=== PATIENT | female | born 1990 ===

== ENCOUNTER 2017-07-09 13:03 | Emergency (ER) | payer OTHER ==
[2017-07-09 13:09] VITALS: BP 156/103; PULSE 108; TEMP 98; O2SAT 98
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
[2017-07-09 14:47] VITALS: RESP 20
== END 2017-07-09 14:47 | disposition home or self-care (01) ==
LOC: SUPCPDRO 13:03 → C.ER 13:03
DX: M54.5 Low back pain (principal); V89.2XXA Person injured in unspecified motor-vehicle accident, traffic, initial encounter
CPT/HCPCS: 72100; 96372; 99283; J1885